=== PATIENT | male | born 1990 | race Caucasian/White ===

== ENCOUNTER 2017-05-19 16:56 | Emergency (ER) | payer OTHER, MEDICAID ==
[2017-05-19 17:09] VITALS: RESP 18; O2SAT 96
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
[2017-05-19 19:36] VITALS: BP 122/72; PULSE 75; TEMP 97.5
== END 2017-05-19 19:33 | disposition home or self-care (01) ==
DX: T14.8XXA Other injury of unspecified body region, initial encounter (principal); Z87.891 Personal history of nicotine dependence; V49.49XA Driver injured in collision with other motor vehicles in traffic accident, initial encounter; Y92.410 Unspecified street and highway as the place of occurrence of the external cause; Y99.8 Other external cause status